=== PATIENT | male | born 1980 | race Caucasian/White ===

== ENCOUNTER 2018-03-14 21:27 | Emergency (ER) | payer OTHER, SELFPAY ==
[2018-03-14 21:29] VITALS: BP 123/92; PULSE 94; RESP 16; TEMP 37.1; O2SAT 98; BMI 25.5
--- NOTE | 2018-03-14 21:51 | RAD_ITS ---
STUDY: X-RAY - LEFT ANKLE REASON FOR EXAM: Male, 37 years old. Injury, pain TECHNIQUE: 3 view(s) of the ankle. COMPARISON: None. FINDINGS: There is avulsion fracture at the tip of the lateral malleolus. There is associated soft tissue swelling. The ankle mortise appears intact. There is no osseous destruction. Mild spurring at the superior aspect of the talonavicular joint. Os trigonum. RAD/Ankle min 3 Views IMPRESSION: Avulsion fracture at the tip of the lateral malleolus Electronically Signed: Hayden Chavez MD at 22:09 EDT Tel , Service support ,
--- NOTE | 2018-03-14 22:21 | ED.DCSUM_ITS ---
- ER Visit Summary Date of Service: 03/14/18 Chief Complaint: Left ankle pain History of Present Illness: The patient is a 37 M who reports that 3 days ago he had a forced inversion injury of his left ankle. Reports he is a dull pain is 1 out of 10 severity. Is worsened by touching it. He denies any increase in pain with ambulation. He denies any other injuries. Physical Examination: Vitals: Stable. Afebrile. General: Well-nourished and well-developed. Head: Normocephalic atraumatic. Neck: Supple, no lymphadenopathy. No JVD. Nontender. Cardiovascular: Regular rate and rhythm. No murmurs. Respiratory: No respiratory distress. Clear to auscultation bilaterally. Abdominal: Soft, nontender, nondistended, normal bowel sounds. No guarding, rebound, or peritoneal signs. Back: Nontender. Extremities: Tissue swelling and moderate to palpation over the lateral malleolus. He is neurovascular intact distal this. No pain over the medial malleolus. No pain with base the fifth metatarsal or proximal fibula. Skin: Normal color, no rash. Neurologic: Alert and oriented ?3. Cranial nerves II through XII are intact. Normal strength and sensation. Psych: Normal affect. Test Results: X-ray shows an avulsion fracture of the distal fibula. Emergency Department Course and Treatment: Patient refused pain medications. Treatment Plan: Patient already has a walking boot at home. He is instructed to wear this. Follow-up Dr. Frausto in 1 to weeks for another exam. Disposition: To home in improved and stable condition. Impression: 1. Avulsion fracture left distal fibula. This note was generated with [employer] dictation software. It may contain incorrect words, spelling, and punctuation that were not noted in review of the chart prior to signing ED Disposition - Plan for ED Patient: Disposition: Home or Assisted Living Chief Complaint: Lower Extremity Injury Instructions: ED Fx Ankle Lateral Malleolus Referrals: Gunner Frausto DPM [STAFF PHYSICIAN] - 1-2 Weeks
[2018-03-14 22:32] VITALS: BP 120/85; PULSE 80; RESP 14; O2SAT 99
== END 2018-03-14 22:34 | disposition home or self-care (01) ==
LOC: ED 22:26
PROVIDERS: Emergency Provider Emergency Medicine
DX: S82.832A Other fracture of upper and lower end of left fibula, initial encounter for closed fracture (principal); X50.0XXA Overexertion from strenuous movement or load, initial encounter; Y93.89 Activity, other specified; Y92.89 Other specified places as the place of occurrence of the external cause; Y99.8 Other external cause status
CPT/HCPCS: 73610; 99282